=== PATIENT | male | born 1975 | race Caucasian/White ===

== ENCOUNTER 2016-11-26 10:59 | Emergency (ER) | payer OTHER ==
[2016-11-26 12:23] VITALS: BP 139/75
--- NOTE | 2016-11-26 12:46 | RAD ---
INDICATION: Right wrist injury. TECHNIQUE: 3 views of the right wrist were obtained. FINDINGS: The bones are in normal alignment. No fracture is seen. Joint spaces appear maintained. IMPRESSION: NO EVIDENCE FOR FRACTURE.
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
== END 2016-11-26 13:08 | disposition home or self-care (01) ==
LOC: UCCORT 10:59
DX: S63.501A Unspecified sprain of right wrist, initial encounter (principal); X58.XXXA Exposure to other specified factors, initial encounter; Y92.9 Unspecified place or not applicable; Y99.0 Civilian activity done for income or pay; Z88.8 Allergy status to other drugs, medicaments and biological substances
CPT/HCPCS: 99211; G0463

== ENCOUNTER 2017-06-12 14:25 | Emergency (ER) | payer OTHER ==
--- NOTE | 2017-06-12 15:54 | RAD ---
HISTORY: Anterior elbow pain after strain COMPARISONS: None VIEWS: 4, Frontal, lateral, and oblique views of the right elbow FINDINGS: BONE DENSITY: Normal. BONES: There is no displaced fracture. JOINTS: There is no arthropathy. There is no posterior supracondylar fat pad to suggest a joint effusion. ALIGNMENT: There is no dislocation. SOFT TISSUES: Unremarkable. OTHER FINDINGS: None. IMPRESSION: NO ACUTE OSSEOUS INJURY. IF SYMPTOMS PERSIST, RECOMMEND REPEAT IMAGING.
--- NOTE | 2017-06-12 16:47 | UC ---
Upper Extremity HPI - HPI Summary HPI Summary: pt p/w complaint of rt elbow pain after participating in a restraint at [employer] this morning at ~07:45. pt is unsure of what happened but after the restraint noted pain over lateral aspect of his proximal forearm. pain is worse with any wt on the arm. no other sx. - History of Current Complaint Chief Complaint: UCUpperExtremity Stated Complaint: ARM INJURY Time Seen by Provider: 06/12/17 15:24 Hx Obtained From: Patient Onset/Duration: Sudden Onset, Lasting Hours, Still Present Severity Initially: Moderate Severity Currently: Moderate Pain Intensity: 4 Aggravating Factor(s): Movement, Lifting, Flexion, Internal/External Rotation - supination Alleviating Factor(s): Rest Associated Signs And Symptoms: Positive: Other. Negative: Redness, Bruising, Fever, Weakness, Numbness/Tingling Related History: Occupational Injury, Dominant Hand Right - Allergies/Home Medications Allergies/Adverse Reactions: Allergies Allergy/AdvReac Type Severity Reaction Status Date / Time eye drop Allergy Intermediate See Comment Uncoded 06/12/17 15:16 PMH/Surg Hx/FS Hx/Imm Hx Previously Healthy: Yes - Surgical History Surgical History: None Surgery Procedure, Year, and Place: RIGHT FOOT SURGERY AN [employer]; left lower leg and ankle fx with metal plate and screws 09/2015; B/L carpal tunnel 2014 - Family History Known Family History: Negative: Cardiac Disease, Hypertension, Diabetes - Social History Occupation: Employed Full-time Alcohol Use: None Alcohol Amount: SOCIAL Substance Use Type: None Smoking Status (MU): Never Smoked Tobacco - Immunization History Most Recent Tetanus Shot: <5 YEARS Review of Systems Constitutional: Negative Skin: Negative Eyes: Negative ENT: Negative Respiratory: Negative Cardiovascular: Negative Neurovascular: Negative Musculoskeletal: Myalgia Neurological: Negative All Other Systems Reviewed And Are Negative: Yes Physical Exam Triage Information Reviewed: Yes Appearance: Well-Appearing, No Pain Distress, Well-Nourished Vital Signs: Initial Vital Signs Temp 99.5 F 06/12/17 15:13 Pulse 46 06/12/17 15:13 Resp 18 06/12/17 15:13 BP 127/70 06/12/17 15:13 Pulse Ox 100 06/12/17 15:13 Vital Signs Reviewed: Yes Eyes: Positive: Conjunctiva Clear. Negative: Discharge ENT: Positive: Hearing grossly normal. Negative: Muffled/hoarse voice Neck: Positive: Supple Respiratory: Positive: Lungs clear, Normal breath sounds, No respiratory distress, No accessory muscle use Cardiovascular: Positive: RRR, No Murmur, Pulses Normal Musculoskeletal: Positive: No Edema, Other: - tender over radial head on rt. thickening noted at dis ant aspect of brachium. slight depresion noted over shaft of humerous. pt with flex of biceps. distal neurovascularly intact Neurological: Positive: Alert, Muscle Tone Normal Psychological: Positive: Age Appropriate Behavior Skin Exam: Normal Diagnostics - Radiology No standard instances Xray Interpretation: No Acute Changes Radiology Interpretation Completed By: ED Physician - no fx seen, Radiologist Upper Extremity Course/Dx - Differential Dx/Diagnosis Differential Diagnosis/HQI/PQRI: Bursitis, Fracture (Closed), Strain, Sprain, Other - ruptured biceps tendon Provider Diagnoses: elbow sprain, ruptured biceps tendon Discharge - Discharge Plan Condition: Stable Disposition: HOME Patient Education Materials: Elbow Sprain (ED), Tendon Rupture (ED) Forms: *Work Release Referrals: Ann-Marie Rocha NP [Primary Care Provider] - 3 Days Francisca Naqvi MD [Medical Doctor] - 1 Day (Follow up in 1-3 days or as per ortho )
[2017-06-12 17:10] VITALS: BP 127/83
== END 2017-06-12 16:50 | disposition home or self-care (01) ==
LOC: UCEAST 14:25
DX: S53.401A Unspecified sprain of right elbow, initial encounter (principal); S46.211A Strain of muscle, fascia and tendon of other parts of biceps, right arm, initial encounter; X58.XXXA Exposure to other specified factors, initial encounter; Y93.89 Activity, other specified; Y92.159 Unspecified place in reform school as the place of occurrence of the external cause; Y99.0 Civilian activity done for income or pay
CPT/HCPCS: 99212; G0463

== ENCOUNTER 2019-07-12 15:14 | Emergency (ER) | payer OTHER ==
--- OUTSIDE RECORDS SUMMARY | 2019-07-12 15:20 | XMS REPORT | Continuity of Care Document ---
:1975 External Reference #:[id number] Author Name Ann-Marie Rocha N.Jennifer Address [address] [place] [id number] Problems Active Problems Provider Date Carpal tunnel syndrome Ann-Marie Rocha N.PFilomena Onset: 05/25/2015 Psychogenic impotence Ann-Marie Rocha NRupa Onset: 05/12/2017 Social History Type Date Description Comments Sex Unknown ETOH Use Occasionally consumes alcohol Tobacco Use Start: Unknown Patient has never smoked Allergies, Adverse Reactions, Alerts Active Allergies Reaction Severity Comments Date Tobramycin 03/03/2012 Medications Active Medications SIG Qnty Indications Ordering Provider Date Vardenafil HCL 1 by mouth as 18tabs Ann-Marie Rocha, 06/16/2019 20mg directed N.P. Tablets Work Note no work Ann-Marie Rocha, 07/08/2016 06/30/18-07/01/18 N.P. Immunizations CPT Code Status Date Vaccine Lot # [id number] Given 11/26/2016 Tdap (Adacel) Ages 7 And Above Only [id number] Refused 11/03/2017 Influenza Vac, Quadrivalent, Split, 0.5mL Dosage, Im Use Vital Signs Date Vital Result Comment 06/16/2019 12:58pm Body Temperature 98.1 F Weight 229.25 lb Heart Rate 61 /min BP Systolic 120 mmHg BP Diastolic 76 mmHg O2 % BldC Oximetry 98 % 06/30/2018 11:29am Body Temperature 98.8 F Weight 223.25 lb Heart Rate 66 /min BP Systolic 146 mmHg BP Diastolic 94 mmHg O2 % BldC Oximetry 98 % Results Description No Information Available Procedures Description No Information Available Medical Devices Description No Information Available Encounters Description No Information Available Assessments Date Code Description Provider 06/16/2019 Z13.31 Encounter for screening for depression Ann-Marie Rocha N.P. 06/16/2019 F52.21 Male erectile disorder Ann-Marie Rocha N.P. Plan of Treatment 06/16/2019 - Ann-Marie Rocha N.P.Z13.31 Encounter for screening for depressionComments:denies increased feelings depression/anxiety at this timeF52.21 Male erectile disorderComments:Levitra prn working well for pt at this timecontinue Levitra as Rx'dreport CP/SOB or other prob prnAllNew Medication:Vardenafil HCL 20 mg - 1 by mouth as directed Functional Status Description No Information Available Mental Status Description No Information Available Referrals Description No Information Available
[2019-07-12 16:00] VITALS: BP 128/76
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
[2019-07-12 21:08] LABS: HIV 4th Generation Nonreactive (Nonreactive)
[2019-07-12 21:13] LABS: Hepatitis B Surface Antigen Nonreactive (Nonreactive)
[2019-07-12 21:31] LABS: Hepatitis B Surface Ab Immune (Immune); Hepatitis C Antibody Negative (Negative)
== END 2019-07-12 16:59 | disposition home or self-care (01) ==
LOC: UCEAST 15:14
DX: Z77.21 Contact with and (suspected) exposure to potentially hazardous body fluids (principal)
CPT/HCPCS: 36415; 86706; 86803; 87340; 87389; 99211; G0463

== ENCOUNTER 2024-01-21 09:30 | Observation (INO) ==
[2024-01-21] MEDS ORDERED: ceFAZolin 2 GM PREMIX 2 GM/50 ML BAG ONE (09:45)
[2024-01-21] MEDS ORDERED: Scopolamine 1 mg/72hr PATCH ONE (09:45)
[2024-01-21] MEDS ORDERED: Famotidine IV 10 MG/ML 2 ml VIAL (20 mg) ONE (09:45)
[2024-01-21] MEDS: Buffered Lidocaine 1% SYRIN 1 ml INTRADERM ONE (10:14)
[2024-01-21] MEDS: Scopolamine 1 mg/72hr PATCH TRANSDERM SCH (10:14)
[2024-01-21] MEDS: Famotidine IV 10 MG/ML 2 ml VIAL (20 mg) IV ONE (10:14)
[2024-01-21] MEDS: Lactated Ringers 1000 ml BAG 1,000 ML IV SCH ×2 (10:14→20:02)
[2024-01-21] MEDS ORDERED: Lidocaine 2% PF 5 ML VIAL ONE (10:19)
[2024-01-21] MEDS ORDERED: Rocuronium 50 mg VIAL 10 mg/ml 5 ml VIAL (50 mg) ONE (10:19)
[2024-01-21] MEDS ORDERED: Midazolam 2 mg/2 ml VIAL 1 mg/ml 2 ml VIAL (2 mg) ONE (10:19)
[2024-01-21] MEDS ORDERED: HYDROmorphone 0.5 MG/0.5 ML SYRINGE ONE (10:19)
[2024-01-21] MEDS ORDERED: Ondansetron 4 mg VIAL 2 MG/ML 2 ml VIAL ONE (10:20)
[2024-01-21] MEDS ORDERED: Propofol 10 MG/ML 20 ML BTL ONE (10:20)
[2024-01-21] MEDS ORDERED: Dexamethasone IV 4 MG/ML VIAL 1 ml VIAL ONE (10:20)
[2024-01-21 10:27] LABS: Rapid COVID-19 Molecular Undetected (Undetected)
[2024-01-21] MEDS ORDERED: Thrombin 5,000 UNITS(BOVINE) for Ultrasound Guided Pseudoaneursym ONE (10:36)
[2024-01-21] MEDS ORDERED: ceFAZolin VIAL VIAL ONE (10:36)
[2024-01-21] MEDS ORDERED: Lidocaine 1% w EPI 1:100,000 MDV 20 ML VIAL ONE (10:36)
[2024-01-21] MEDS ORDERED: Gelfoam Sponge SIZE 100 SPONGE ONE (10:36)
[2024-01-21] MEDS ORDERED: HYDROmorphone 1 MG/1 ML SYRINGE IV PRN (11:34)
[2024-01-21] MEDS ORDERED: fentaNYL 100 mcg/2 ml 50 MCG/ML VIAL IV PRN (11:34)
[2024-01-21] MEDS ORDERED: Naloxone 0.4 mg VIAL 0.4 mg/ml 1 ml VIAL IV PRN (11:34)
[2024-01-21] MEDS ORDERED: Phenol 1.4% Throat Spray BTL MT PRN (13:50)
[2024-01-21] MEDS ORDERED: Dextran 70/Hypromellose Tears Eye Drops 15 ml BTL (for Artificials Tears) BOTH EYES PRN (13:50)
[2024-01-21] MEDS ORDERED: Morphine 2 MG/ML SYRINGE IV PRN (14:05)
[2024-01-21] MEDS ORDERED: Ondansetron 4 mg VIAL 2 MG/ML 2 ml VIAL IV PRN (14:05)
[2024-01-21] MEDS ORDERED: Magnesium Hydroxide LIQ 30 ML UDC PO PRN (14:05)
[2024-01-21] MEDS ORDERED: Calcium Carb (TUMS) 500 mg CHEW TAB PO PRN (14:05)
[2024-01-21] MEDS ORDERED: Senna TAB 8.6 mg TAB PO PRN (14:05)
[2024-01-21] MEDS: Benzocaine/Menthol LOZ MT PRN (16:10)
[2024-01-22 08:02] VITALS: BP 128/62
== END 2024-01-22 10:10 | disposition home or self-care (01) ==
PROVIDERS: ADMIT Neurological Surgery; ATTEND Neurological Surgery